=== PATIENT | female | born 1965 | race Caucasian/White ===

== ENCOUNTER 2016-07-17 11:54 | Outpatient (CLI) | payer OTHER ==
[~2016-07-17 11:54] MED LIST: Iopamidol 370 76% 100 ML VIAL ONE
--- NOTE | 2016-07-17 14:46 | CT ---
CT ABDOMEN AND PELVIS WITH IV AND ORAL CONTRAST: History: Left lower quadrant pain. FINDINGS: The lung bases are clear. The liver, spleen, kidneys, adrenal glands, and pancreas have a normal CT appearance. Nonspecific lymph nodes are scattered about the mesentery and retroperitoneum. Contracep tive device is apparent within the uterine cavity. Subtle fat stranding and minimal fluid surround the lower left colon in an area of diverticula. No f ree air or bowel obstruction are apparent. IMPRESSION: 1. Mild left colon diverticulitis. Findings were called to Maureen at the [facility] at 1414 hours. Code CR. POS: [id number]
== END 2016-07-17 11:55 | disposition home or self-care (01) ==
LOC: MADCT 11:54
PROVIDERS: ATTEND Physician Assistant
DX: R10.2 Pelvic and perineal pain (principal); K57.32 Diverticulitis of large intestine without perforation or abscess without bleeding
CPT/HCPCS: 74177